=== PATIENT | female | born 1960 | race Caucasian/White ===

== ENCOUNTER → 2016-10-31 | Outpatient (CLI) | payer BC ==
--- NOTE | 2016-10-31 15:41 | MAMMOGRAPHY REPORT ---
BILATERAL DIGITAL SCREENING MAMMOGRAM TOMOSYNTHESIS WITH CAD: 10/31/2016 CLINICAL HISTORY: Routine screening. Patient has no complaints. TECHNIQUE: Breast tomosynthesis in addition to standard 2D mammography was performed. Current study was also evaluated with a Computer Aided Detection (CAD) system. COMPARISON: Comparison is made to exams dated: 10/26/2015 mammogram, 10/20/2014 mammogram, 10/14/2013 mammogram, 10/18/2012 mammogram, 10/08/2012 mammogram, and 04/12/2012 mammogram - [facility]. BREAST COMPOSITION: The tissue of both breasts is almost entirely fatty. FINDINGS: No suspicious masses, calcifications, or areas of architectural distortion are noted in e ither breast. There has been no significant interval change compared to prior exams. Left lateral b reast asymmetry on the CC view is similar to prior exams including the 2013 exam. IMPRESSION: ACR BI-RADS CATEGORY 2: BENIGN There is no mammographic evidence of malignancy. A 1 year screening mammogram is recommended. The p atient will receive written notification of the results. Approximately 10% of breast cancers are not detected with mammography. A negative mammographic repor t should not delay biopsy if a clinically suggestive mass is present. Odilia Dobbs M.D. ah/:10/31/2016 12:38:39 Assistant Vice President: Kristan DRAKE(Sahara)(Mario)([place]), [facility] letter sent: Normal 1/2 BI-RADS Code: ACR BI-RADS Category 2: Benign
== END | disposition home or self-care (01) ==
LOC: C.MAMM 09:56
PROVIDERS: ATTEND Internal Medicine
DX: Z12.31 Encounter for screening mammogram for malignant neoplasm of breast (principal)

== ENCOUNTER → 2017-11-06 | Outpatient (CLI) | payer OTHER ==
--- NOTE | 2017-11-09 07:43 | MAMMOGRAPHY REPORT ---
BILATERAL DIGITAL SCREENING MAMMOGRAM TOMOSYNTHESIS WITH CAD: 11/06/2017 CLINICAL HISTORY: Routine screening. Patient has no complaints. TECHNIQUE: Breast tomosynthesis in addition to standard 2D mammography was performed. Current study was also evaluated with a Computer Aided Detection (CAD) system. COMPARISON: Comparison is made to exams dated: 10/31/2016 mammogram, 10/26/2015 mammogram, 10/20/2014 ma mmogram, 10/14/2013 mammogram, 10/18/2012 ultrasound, and 10/08/2012 mammogram - [facility]. BREAST COMPOSITION: The tissue of both breasts is almost entirely fatty. FINDINGS: No suspicious masses, calcifications, or areas of architectural distortion are noted in ei ther breast. There has been no significant interval change compared to prior exams. IMPRESSION: ACR BI-RADS CATEGORY 1: NEGATIVE There is no mammographic evidence of malignancy. A 1 year screening mammogram is recommended. The pa tient will receive written notification of the results. Approximately 10% of breast cancers are not detected with mammography. A negative mammographic report should not delay biopsy if a clinically suggestive mass is present. Odilia Dobbs M.D. /:11/06/2017 11:19:14 Human Resources Department Supervisor: Sheila DRAKE(Sahara)(Mario), [facility] letter sent: Normal 1/2 BI-RADS Code: ACR BI-RADS Category 1: Negative
== END | disposition home or self-care (01) ==
LOC: C.MAMM 08:58
PROVIDERS: ATTEND Internal Medicine
DX: Z12.31 Encounter for screening mammogram for malignant neoplasm of breast (principal)

== ENCOUNTER → 2018-01-15 | Outpatient (CLI) | payer OTHER ==
[~2018-01-15] MED LIST: ATV/1 PO; METH4PAK PO; SERT-234 PO
[2018-01-15 13:31] LABS: BASO % 0.3 %; BASO ABS # 0.03 K/uL (0-0.2); EOS % 1.8 %; EOS ABS # 0.21 K/uL (0-0.5); HEMOGLOBIN 15.5 g/dL (12.0-16.0); IG# 0.18 K/uL (0.00-0.02); LYMPH % 21.5 %; LYMPH ABS # 2.57 K/uL (1.2-3.4); MEAN CELL VOLUME 89.9 fL (80-100); MEAN CORPUSCULAR HEMOGLOBIN 29.6 pg (25-34); MEAN PLATELET VOLUME 9.8 fL (7.4-10.4); MONO % 3.8 %; MONO ABS # 0.45 K/uL (0.11-0.59); NEUT % 71.1 %; PLATELET COUNT 350 K/uL (130-400); RED CELL DISTRIBUTION WIDTH CV 14.3 % (11.5-14.5); RED CELL DISTRIBUTION WIDTH SD 46.9 fL (36.4-46.3); WHITE BLOOD COUNT 11.94 K/uL (4.8-10.8)
[2018-01-15 13:36] LABS: HEMOGLOBIN A1C 6.7 % (4.5-5.6)
[2018-01-15 13:53] LABS: ALBUMIN 3.7 gm/dl (3.4-5.0); ALKALINE PHOSPHATASE 82 U/L (45-117); ALT/SGPT 30 U/L (12-78); AST/SGOT 13 U/L (15-37); BLOOD UREA NITROGEN 12 mg/dl (7-18); CALCIUM 9.2 mg/dl (8.5-10.1); CARBON DIOXIDE 31 mmol/L (21-32); CHOLESTEROL 294 mg/dl (0-200); CREATININE 0.81 mg/dl (0.60-1.20); GLUCOSE 118 mg/dl (70-99); LDL CHOLESTEROL CALCULATED 187 mg/dl; POTASSIUM 4.3 mmol/L (3.5-5.1); SODIUM 140 mmol/L (136-145); TOTAL PROTEIN 7.6 gm/dl (6.4-8.2)
== END | disposition home or self-care (01) ==
LOC: C.LABBC 10:24
PROVIDERS: ATTEND Internal Medicine
DX: Z00.00 Encounter for general adult medical examination without abnormal findings (principal); Z11.59 Encounter for screening for other viral diseases; F32.9 Major depressive disorder, single episode, unspecified; F41.1 Generalized anxiety disorder; E78.5 Hyperlipidemia, unspecified; R73.03 Prediabetes; F17.200 Nicotine dependence, unspecified, uncomplicated

== ENCOUNTER 2018-01-22 13:58 | Emergency (ER) | payer OTHER ==
[~2018-01-22] VITALS: Ht 167.6 cm; Wt 101.6 kg
[2018-01-22 14:02] VITALS: TEMP 36.5; Ht 167.6 cm; Wt 101.6 kg
[2018-01-22] MEDS ORDERED: ALBUT/IPRATROP 3MG/0.5MG NEB 3 ML VIAL ONE (14:28)
[2018-01-22] MEDS ORDERED: ALBUT/IPRATROP 3MG/0.5MG NEB 3 ML VIAL INH STA ×2 (14:30→14:44)
[2018-01-22 14:32] VITALS: O2SAT 95
[2018-01-22 14:39] LABS: BASO % 0.4 %; BASO ABS # 0.04 K/uL (0-0.2); EOS % 2.5 %; EOS ABS # 0.28 K/uL (0-0.5); HEMATOCRIT 43.6 % (37-47); HEMOGLOBIN 14.9 g/dL (12.0-16.0); IG# 0.11 K/uL (0.00-0.02); LYMPH ABS # 3.29 K/uL (1.2-3.4); MEAN CELL VOLUME 87.4 fL (80-100); MEAN CORPUSCULAR HEMOGLOBIN 29.9 pg (25-34); MEAN CORPUSCULAR HGB CONC 34.2 g/dl (32-36); MEAN PLATELET VOLUME 9.5 fL (7.4-10.4); MONO % 6.1 %; MONO ABS # 0.69 K/uL (0.11-0.59); NEUT ABS # 6.95 K/uL (1.4-6.5); PLATELET COUNT 373 K/uL (130-400); RED CELL DISTRIBUTION WIDTH CV 13.9 % (11.5-14.5); RED CELL DISTRIBUTION WIDTH SD 44.2 fL (36.4-46.3); WHITE BLOOD COUNT 11.36 K/uL (4.8-10.8)
[2018-01-22] MEDS ORDERED: SODIUM CHLORIDE 0.9% 1000ML 1,000 ML IV STA (14:44)
[2018-01-22 14:50] LABS: INR 0.9 (0.9-1.1); PTT PATIENT 26.9 SECONDS (21.0-31.0)
[2018-01-22] MEDS ORDERED: DEXAMETHASONE SOD INJ 4 MG/ML VIAL IV STA (14:50)
--- NOTE | 2018-01-22 14:55 | DIAGNOSTIC IMAGING REPORT ---
CHEST ONE VIEW PORTABLE CLINICAL HISTORY: SOB, wheezing dyspnea COMPARISON STUDY: 05/05/2014 FINDINGS: The bones soft tissues and hemidiaphragms are normal. The cardiomediastinal silhouette is normal. The lungs are clear. The pulmonary vasculature is normal. IMPRESSION: Negative chest. The above report was generated using voice recognition software. It may contain grammatical, syntax or spelling errors. Electronically signed by: Sean Gann M.D. 01/22/2018 2:53 PM Dictated Date/Time: 01/22/2018 2:53 PM
[2018-01-22] MEDS ORDERED: OPTIRAY 320 IV PRN (15:00)
--- NOTE | 2018-01-22 15:00 | EMERGENCY ROOM VISIT NOTE ---
ED Visit Note First contact with patient: 14:34 CHIEF COMPLAINT: Sore throat, shortness of breath, "feels like something is stuck in my airway" HISTORY OF PRESENTING ILLNESS: This is a 57-year-old female with past medical history of COPD and depression, who presents to the emergency department with complaint of shortness of breath and difficulty breathing. She states she started with a sore throat 2 days ago, and began to start feeling like she was having difficulty breathing. Today she noticed significant worsening symptoms and also noticed that the front of her neck appears swollen to her. She denies any fevers or chills, denies other URI symptoms of cough, ear pain, or sinus congestion. She states she had a similar feeling of sore throat about 1 month ago, she saw her doctor and was tested for strep which was negative, and states that she was treated with a course of penicillin, and her symptoms resolved. She denies any headaches, vision changes, neck pain or stiffness, difficulty swallowing, tongue or lip swelling, chest pain, abdominal pain, or unusual rash. REVIEW OF SYSTEMS: A complete 10 point review of systems was reviewed with the patient with pertinent positives and negatives as per history of present illness. All else were negative. PAST MEDICAL HISTORY: COPD/asthma, depression/anxiety SOCIAL HISTORY: Lives at home. She is a current everyday smoker, 1 pack per day. ALLERGIES: Reviewed in chart, see below. PHYSICAL EXAM: CONSTITUTIONAL: Pleasant and cooperative. No acute distress. Mildly dehydrated , but otherwise well appearing and well nourished. HEENT: Normocephalic, atraumatic. Pupils equal, round and reactive to light, EOMI. TMs normal. Pharynx is mildly erythematous, but no edema, exudate, or tonsillar enlargement appreciated. No woody edema or tenderness of the mouth floor. No uvular deviation. No trismus. Voice is slightly hoarse. Airway patent. Tacky mucous membranes. NECK: Supple, full active range of motion without discomfort. No cervical adenopathy. RESPIRATORY: Diffuse expiratory wheezes heard with auscultation bilaterally. No crackles or rhonchi. Mild stridor. Equal expansion bilaterally. CARDIOVASCULAR: Regular rate and rhythm with no murmurs, rubs or gallops. Normal peripheral perfusion. No edema. GASTROINTESTINAL: Soft, nontender, nondistended. No palpable masses or HSM. Bowel sounds present in all quadrants. MUSCULOSKELETAL: Full range of motion of all joints without discomfort. INTEGUMENTARY: No rash or other significant dermatologic conditions noted. NEUROLOGIC: Alert and oriented X 4 with normal affect. Cranial nerves II-XII grossly intact, no facial droop. No pronator drift. No focal neurologic deficits noted. Normal strength and sensation in all 4 extremities. Normal speech. Normal gait observed. ED COURSE AND MEDICAL DECISION MAKING: CC: Patient presenting with complaint of sore throat, shortness of breath DIFFERENTIAL DIAGNOSIS: Includes, but not limited to pharyngitis, strep, mononucleosis, airway foreign body, peritonsillar abscess, retropharyngeal abscess, airway mass, Lavon's angina, among others. INTERPRETATION OF LABS: Mild leukocytosis, no anemia, normal platelets, no significant electrolyte abnormalities, normal renal function, normal liver enzymes. Coagulation factors within normal limits. Monospot negative. Rapid strep negative, culture pending. IMAGING: CHEST ONE VIEW PORTABLE CLINICAL HISTORY: SOB, wheezing dyspnea COMPARISON STUDY: 05/05/2014 FINDINGS: The bones soft tissues and hemidiaphragms are normal. The cardiomediastinal silhouette is normal. The lungs are clear. The pulmonary vasculature is normal. IMPRESSION: Negative chest. ----- CT OF THE NECK WITH CONTRAST CLINICAL HISTORY: Neck injury on swelling. Sore throat. COMPARISON STUDY: No previous studies for comparison. TECHNIQUE: Axial images of the neck were obtained following intravenous injection of 92 cc Optiray 320 IV. FINDINGS: Visualized portions of the intracranial contents are unremarkable. The parotid and submandibular glands are normal. Thyroid gland is normal. Epiglottis is normal. There is mild enlargement of the tonsils and the adenoids. There is laryngeal edema within the glottic/supraglottic region. There is a 1 cm hypodensity which extends inferiorly from the cords. In addition, there is a 1.9 x 0.5 cm hyperdensity posterior superior to the cricoid cartilage either within or adjacent to the proximal esophagus. Lung apices are clear. Major vasculature of the neck is patent. There is moderate narrowing of the proximal right internal carotid artery. IMPRESSION: 1. Moderate to marked airway narrowing at the glottic/supraglottic region with inflammation. Close clinical monitoring is recommended. Associated 1 cm hypoechoic density which extends inferiorly from the cords. This may reflect edematous tissue or a hypodense mass. In addition, 1.9 x 0.5 cm hyperdensity posterior superior to the cricoid cartilage which is either within or adjacent to the proximal esophagus. While this may be physiologic, the findings raise the possibility of a foreign body. ENT consultation is recommended. Findings discussed with Dr. Beauchamp time of dictation. 2. Mild enlargement of the tonsils and adenoids. 3. Moderate narrowing of the proximal right internal carotid artery. MEDICATION RECONCILIATION: I attest that I have personally reviewed the patient 's current medication list. INITIAL VITAL SIGNS REVIEW: I reviewed the patient's initial vital signs and interpret them as follows: T: Afebrile; BP: Hypertensive; HR: Mildly tachycardic; RR: Mildly tachypneic; Pulse Ox: 99% on room air. Blood pressure screening: The patient was found to have an elevated blood pressure, which was felt to be situational. SUMMARY: Patient was evaluated at bedside, history and physical exam performed. Patient is alert and oriented, in no acute distress, but does appear anxious and uncomfortable, sitting upright in the stretcher. Patient with diffuse wheezing and mild stridor on auscultation. DuoNeb started by nursing, orders placed by nursing protocol due to long waits in the ED. Additional orders were placed at bedside for CT soft tissue neck with IV contrast to evaluate for airway obstruction/Lavon's angina. Patient discussed with Dr. Beauchamp, who agrees with my assessment and plan. Labs and imaging reviewed as above, CT imaging concerning for significant airway obstruction with a hypoechoic density extending inferiorly from the cords. I spoke on the phone with Dr. Marquis, ENT, regarding the patient's clinical exam and CT findings, he did agree to come in to the ED to evaluate the patient. I did follow up with Dr. Marquis after he performed bedside scope of the patient' s airway, he confirms that there is a large polyp on the left side of the vocal cords, with maximum airway obstruction of about 50%. Please see his note for further details. Dr. Marquis did feel the patient could be safely discharged home, he recommended placing her on a Medrol Dosepak, and he will see her in his office on Thursday for elective surgical management of the polyp. Patient reassessed multiple times throughout ED stay, she has remained stable, airway patent, and she states she is feeling a lot better after the IV steroids and IV fluids. Patient was updated on all results and plan for discharge, with close follow-up with Dr. Marquis and ENT. Rx for Medrol Dosepak was provided to the patient and she was educated regarding this medication. Patient was also given strict return precautions should her symptoms worsen, she verbalized understanding. Patient was discharged home in stable condition and ambulatory. (Viji Valles, IVA) First contact with patient: 14:34 (Benji Beauchamp M.D.) Current/Historical Medications Scheduled Lorazepam (Ativan), 2 MG PO HS Methylprednisolone (Medrol Dosepak), 0 PO DAILY Sertraline (Zoloft), 100 MG PO QAM Allergies Coded Allergies: Bupropion (Verified Allergy, Mild, ., 03/17/13) DIDNT WORK Citalopram (Verified Allergy, Mild, GI SYMPTOMS, 03/17/13) Fluoxetine (Verified Allergy, Mild, ., 03/17/13) DIDN'T WORK Latex (Verified Allergy, Mild, ., 03/17/13) "SKIN BURNED OFF" WHERE BANDAGE WAS. Lovastatin (Verified Allergy, Mild, ., 03/17/13) LEGS HURT Pravastatin (Verified Allergy, Mild, GI SYMPTOMS, 03/17/13) Simvastatin (Verified Allergy, Mild, GI SYMPTOMS, 03/17/13) Vital Signs Date Time Temp Pulse Resp B/P (MAP) Pulse Ox O2 Delivery O2 Flow Rate FiO2 01/22/18 18:02 102 18 125/84 96 01/22/18 16:48 93 20 92 Room Air 01/22/18 16:11 101 16 142/68 92 Room Air 01/22/18 14:32 95 Room Air 01/22/18 14:31 95 Room Air 01/22/18 14:26 96 Room Air 01/22/18 14:19 84 01/22/18 14:02 36.5 102 22 185/93 99 Room Air (Benji Beauchamp M.D.) Laboratory Results 01/22/18 14:20 Red Blood Count 4.99, Mean Corpuscular Volume 87.4, Mean Corpuscular Hemoglobin 29.9, Mean Corpuscular Hemoglobin Concent 34.2, Mean Platelet Volume 9.5, Neutrophils (%) (Auto) 61.0, Lymphocytes (%) (Auto) 29.0, Monocytes (%) (Auto) 6.1, Eosinophils (%) (Auto) 2.5, Basophils (%) (Auto) 0.4, Neutrophils # (Auto) 6.95, Lymphocytes # (Auto) 3.29, Monocytes # (Auto) 0.69, Eosinophils # (Auto) 0.28, Basophils # (Auto) 0.04 01/22/18 14:20 Test 01/22/18 14:20 White Blood Count 11.36 K/uL (4.8-10.8) Red Blood Count 4.99 M/uL (4.2-5.4) Hemoglobin 14.9 g/dL (12.0-16.0) Hematocrit 43.6 % (37-47) Mean Corpuscular Volume 87.4 fL (80-100) Mean Corpuscular Hemoglobin 29.9 pg (25-34) Mean Corpuscular Hemoglobin Concent 34.2 g/dl (32-36) Platelet Count 373 K/uL (130-400) Mean Platelet Volume 9.5 fL (7.4-10.4) Neutrophils (%) (Auto) 61.0 % Lymphocytes (%) (Auto) 29.0 % Monocytes (%) (Auto) 6.1 % Eosinophils (%) (Auto) 2.5 % Basophils (%) (Auto) 0.4 % Neutrophils # (Auto) 6.95 K/uL (1.4-6.5) Lymphocytes # (Auto) 3.29 K/uL (1.2-3.4) Monocytes # (Auto) 0.69 K/uL (0.11-0.59) Eosinophils # (Auto) 0.28 K/uL (0-0.5) Basophils # (Auto) 0.04 K/uL (0-0.2) RDW Standard Deviation 44.2 fL (36.4-46.3) RDW Coefficient of Variation 13.9 % (11.5-14.5) Immature Granulocyte % (Auto) 1.0 % Immature Granulocyte # (Auto) 0.11 K/uL (0.00-0.02) Prothrombin Time 9.2 SECONDS (9.0-12.0) Prothromb Time International Ratio 0.9 (0.9-1.1) Activated Partial Thromboplast Time 26.9 SECONDS (21.0-31.0) Partial Thromboplastin Ratio 1.0 Anion Gap 6.0 mmol/L (3-11) Est Creatinine Clear Calc Drug Dose 95.6 ml/min Estimated GFR () 96.2 Estimated GFR (Non- 83.0 BUN/Creatinine Ratio 17.2 (10-20) Calcium Level 9.7 mg/dl (8.5-10.1) Total Bilirubin 0.2 mg/dl (0.2-1) Aspartate Amino Transf (AST/SGOT) 23 U/L (15-37) Alanine Aminotransferase (ALT/SGPT) 32 U/L (12-78) Alkaline Phosphatase 89 U/L (45-117) Total Protein 8.4 gm/dl (6.4-8.2) Albumin 3.8 gm/dl (3.4-5.0) Globulin 4.6 gm/dl (2.5-4.0) Albumin/Globulin Ratio 0.8 (0.9-2) Monoscreen NEG (NEG) (Benji Beauchamp M.D.) Medications Administered Medications (Trade) Dose Ordered Sig/Zora Route Start Time Stop Time Status Last Admin Dose Admin Albuterol/ Ipratropium (Duoneb) 3 ml NOW STAT INH 01/22/18 14:30 01/22/18 14:31 DC 01/22/18 14:30 3 ML Sodium Chloride 1,000 ml @ 999 mls/hr Q1H1M STAT IV 01/22/18 14:44 01/22/18 15:44 DC 01/22/18 15:00 999 MLS/HR Albuterol/ Ipratropium (Duoneb) 6 ml NOW STAT INH 01/22/18 14:44 01/22/18 14:48 DC 01/22/18 14:44 6 ML Dexamethasone Sodium Phosphate (Decadron Inj) 10 mg NOW STAT IV 01/22/18 14:50 01/22/18 14:51 DC 01/22/18 14:50 10 MG Racepinephrine (Raccemic Epinephrine 2.25% 0.5ML Neb) 0.5 ml NOW STAT INH 01/22/18 16:26 01/22/18 16:27 DC 01/22/18 16:47 0.5 ML (Benji Beauchamp M.D.) Departure Information Impression Primary Impression: Polyp of vocal cord Dispostion Home / Self-Care Condition GOOD Prescriptions Methylprednisolone (MEDROL DOSEPAK) 4 Mg Manas 0 PO DAILY, #1 PKT Prov: Viji Valles, ACCOUNT UNDERWRITER 01/22/18 Referrals Holland Ortiz M.D. (PCP) Patient Instructions My [facility] Additional Instructions You have been evaluated and treated in the emergency department today for your difficulty breathing. You were evaluated at bedside by the ENT surgeon, and were found to have a polyp in your vocal cords. You have been prescribed a Medrol Dosepak (steroid) to help manage the inflammation of the polyp, please take this as prescribed. You have been set up for a follow-up appointment with Dr. Marquis with ENT on Thursday, January 26, 2018 for further management of your polyp. Please return to the emergency department for any worsening symptoms, including increased difficulty breathing or inability to catch her breath, high-pitched or noisy breathing, severe pain in your throat or neck, severe dizziness or passing out, development of fevers or chills, or any other concerns.
[2018-01-22 15:02] LABS: ALBUMIN 3.8 gm/dl (3.4-5.0); CALCIUM 9.7 mg/dl (8.5-10.1); CREATININE 0.8 mg/dl (0.60-1.20); POTASSIUM 3.5 mmol/L (3.5-5.1); TOTAL PROTEIN 8.4 gm/dl (6.4-8.2)
[2018-01-22] MEDS ORDERED: RACEPINEPHRINE 2.25% NEBU SOLN 0.5 ML VIAL INH STA (16:26)
--- NOTE | 2018-01-22 16:33 | DIAGNOSTIC IMAGING REPORT ---
CT OF THE NECK WITH CONTRAST CLINICAL HISTORY: Neck injury on swelling. Sore throat. COMPARISON STUDY: No previous studies for comparison. TECHNIQUE: Axial images of the neck were obtained following intravenous injection of 92 cc Optiray 320 IV. FINDINGS: Visualized portions of the intracranial contents are unremarkable. The parotid and submandibular glands are normal. Thyroid gland is normal. Epiglottis is normal. There is mild enlargement of the tonsils and the adenoids. There is laryngeal edema within the glottic/supraglottic region. There is a 1 cm hypodensity which extends inferiorly from the cords. In addition, there is a 1.9 x 0.5 cm hyperdensity posterior superior to the cricoid cartilage either within or adjacent to the proximal esophagus. Lung apices are clear. Major vasculature of the neck is patent. There is moderate narrowing of the proximal right internal carotid artery. IMPRESSION: 1. Moderate to marked airway narrowing at the glottic/supraglottic region with inflammation. Close clinical monitoring is recommended. Associated 1 cm hypoechoic density which extends inferiorly from the cords. This may reflect edematous tissue or a hypodense mass. In addition, 1.9 x 0.5 cm hyperdensity posterior superior to the cricoid cartilage which is either within or adjacent to the proximal esophagus. While this may be physiologic, the findings raise the possibility of a foreign body. ENT consultation is recommended. Findings discussed with Dr. Beauchamp time of dictation. 2. Mild enlargement of the tonsils and adenoids. 3. Moderate narrowing of the proximal right internal carotid artery. Electronically signed by: Zachariah Desai M.D. 01/22/2018 4:32 PM Dictated Date/Time: 01/22/2018 4:08 PM
[2018-01-22 16:48] VITALS: PULSE 93; O2SAT 92
[2018-01-22] MEDS ORDERED: METH4PAK PO (17:34)
[2018-01-22] MEDS ORDERED: SERT-234 PO (17:44)
[2018-01-22] MEDS ORDERED: ATV/1 PO (17:44)
[2018-01-22 18:02] VITALS: BP 125/84; PULSE 102; O2SAT 96
--- NOTE | 2018-01-22 20:23 | ENT CONSULTATION ---
DATE OF CONSULTATION: 01/22/2018 PERSON REQUESTING CONSULTATION: LELAND Valerio INDICATION: Rule out laryngeal mass. HISTORY OF PRESENT ILLNESS: This is a 57-year-old woman who I interviewed in module B12 along with her sister Mary. Mary has noticed that her sister's voice has changed for about the last 3 years. The patient is a heavy smoker. The patient earlier today decided to come to the Emergency Department, as she was feeling her throat close up on her. Since arriving, she was given 10 mg of Decadron. After the Decadron, she reported breathing much more easily. CT scan showed a possible laryngeal mass. As far as review of systems, past medical history, they are all available in the ED note. The patient in general was not tachypneic. There was no stridor. Her voice did sound a bit deep. I performed flexible fiberoptic laryngoscopy through the left nostril. I was easily able to see a polyp that emanated from the junction of the left false cord and the left true cord that swept in and out of the glottis. It obstructed about 50% of the glottis. There were no other abnormalities of the subglottis, the piriform sinuses, the vallecula or anywhere else in the hypopharynx. The only abnormality was the polyp. 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 I offered the patient 3 options. 1. The first option was to do nothing, which I thought was a very bad idea and I threw it out of hand. 2. The second option was to go to the operating room tonight and remove this using direct laryngoscopy without CO2 laser. I explained that I did not feel this was the best course in that I can do much more refined work with the CO2 laser, and this would have a better impact on potential regrowth of the polyp and on her vocal quality. 3. The third option was to send her home on oral steroids and to see her back on 01/26/2018, in my office. I shared that I favored this option , as she is confident that she would never let things get out of hand to the point where she could not breathe before returning to the ED. Therefore, there is really not much downside for her to just return to see me in my office on 01/26/2018. At that point, I will make arrangements to schedule elective surgery for her at [facility] with the CO2 laser. Alternatively, this might be done at the [facility] outpatient surgery center. In any event, the patient and I will discuss this on Thursday01/26/2018 at her visit with me. I have already discussed the management options with Stefani Pro and she will make out the prescription for the oral steroids. SEAN
== END 2018-01-22 18:04 | disposition home or self-care (01) ==
LOC: C.EDB 13:59
DX: J38.1 Polyp of vocal cord and larynx (principal); R06.00 Dyspnea, unspecified; R07.0 Pain in throat; J44.9 Chronic obstructive pulmonary disease, unspecified; I10 Essential (primary) hypertension; I65.21 Occlusion and stenosis of right carotid artery; F17.210 Nicotine dependence, cigarettes, uncomplicated; Z79.899 Other long term (current) drug therapy; Z88.8 Allergy status to other drugs, medicaments and biological substances

== ENCOUNTER → 2018-02-05 | Day surgery (SDC) | payer OTHER ==
[2018-02-01 11:15] VITALS: Ht 167.6 cm; Wt 100.0 kg
[~2018-02-05] VITALS: Ht 167.6 cm; Wt 100.0 kg
[~2018-02-05] MED LIST changes: +IBUP-103 PO; -METH4PAK PO
== END | disposition home or self-care (01) ==
LOC: EDSTATUS 10:15 → C.PAT 11:53
DX: J38.1 Polyp of vocal cord and larynx (principal); Z53.9 Procedure and treatment not carried out, unspecified reason

== ENCOUNTER 2020-09-25 04:55 | Observation (INO) ==
--- NOTE | 2020-09-04 15:58 | PAT Medication Instructions ---
Medication Instructions Date of Service September 04, 2020 Home Medications Medication Instructions Recorded lorazepam 1 mg tablet 2 mg PO HS #60 tab 08/13/20 Wheeled Walker #1 ea 08/30/20 Menopause Support 1 tab PO QPM loratadine-pseudoephedrine ER 10 mg-240 mg tablet,extended [id number] 1 tab PO QPM lorazepam 1 mg tablet 2 mg PO HS diclofenac sodium 75 mg PO QAM sertraline [Zoloft] 150 mg PO QAM ASK your surgeon for instructions diclofenac sodium 75 mg PO QAM STOP taking 2 weeks before surgery Menopause Support 1 tab PO QPM Take morning of surgery With a small sip of water, OTHERWISE NOTHING TO EAT OR DRINK AFTER MIDNIGHT: sertraline [Zoloft] 150 mg PO QAM Take evening before surgery loratadine-pseudoephedrine ER 10 mg-240 mg tablet,extended [id number] 1 tab PO QPM lorazepam 1 mg tablet 2 mg PO HS Other Notes If you have any questions please call us at [phone] or [phone] or [phone] or [phone]
--- NOTE | 2020-09-06 09:21 | Anesthesiology Consultation ---
Date of Service September 06, 2020 Assessment & Plan (1) Encounter for pre-operative examination: COVID Status: As of 09/06 assessment, patient denies travel to endemic area, known exposure/sick contacts, or symptoms of COVID19. Patient instructed that they and their household members must follow strict social distancing guidelines, wear a mask in public and avoid travel/events/gatherings for 14 days prior to surgery. Preoperative COVID19 testing to be completed prior to surgery per surgeon's arrangements (08/22 at [facility] [place]). Patient made aware to self-isolate as much as possible between COVID testing and surgery. Chart Review Chart Review: Acceptable Risk for Surgery and Patient seen in Pre Admission Testing Teaching & Discussion Instructed NPO after midnight before surgery, except medications with 15 cc of water. Medication instructions provided according to the PAT guidelines. History Surgery Operation Date: 09/25/20 07:00 Proposed Procedures p Left Total Hip Arthroscopy - Armond Serna MD Height/Weight Height: 5 ft 6 in Weight: 105.5 kg Allergies Allergy/AdvReac Type Severity Reaction Status Date / Time atorvastatin Allergy Intermediate Myalgia Verified 09/04/20 14:23 Cipro Allergy Mild GI UPSET Verified 02/01/18 11:29 adhesive Allergy Unknown Rash Verified 09/04/20 14:23 latex Allergy Unknown ? MILD Verified 09/04/20 14:23 RASH - HAD ITCHY RASH AFTER LATEX USED UNDER ARM AREA rosuvastatin [From Crestor] Allergy Unknown Muscle Pain Verified 09/04/20 14:23 ciprofloxacin AdvReac Unknown GI UPSET Verified 09/04/20 14:23 citalopram AdvReac Unknown GI SYMPTOMS Verified 09/04/20 14:23 fluoxetine AdvReac Unknown Gastrointestinal Verified 09/04/20 14:23 Upset lovastatin AdvReac Unknown MUSCLE ACHE Verified 09/04/20 14:23 pravastatin AdvReac Unknown GI Verified 09/04/20 14:23 SYMPTOMS, LEG PAIN simvastatin AdvReac Unknown GI Verified 09/04/20 14:23 SYMPTOMS, LEG PAIN Medications Home Medications Medication Instructions Recorded Confirmed Last Taken Menopause Support 1 tab PO QPM 03/16/18 09/04/20 03/16/18 16:00 loratadine-pseudoephedrine ER 10 1 tab PO QPM 03/03/19 09/04/20 Unknown mg-240 mg tablet,extended [id number] lorazepam 1 mg tablet 2 mg PO HS #60 tab 08/13/20 09/04/20 Unknown Wheeled Walker #1 ea 08/30/20 08/30/20 Unknown diclofenac sodium 75 mg PO QAM 09/04/20 09/04/20 Unknown sertraline [Zoloft] 150 mg PO QAM 09/04/20 09/04/20 Unknown Past Medical History Medical History (Updated 09/06/20 @ 14:53 by Harpreet Burris) Anxiety and depression Asthma Has albuterol inhaler but never uses. Fatty liver Hyperlipidemia no meds Obesity Osteoarthritis Spinal stenosis Tobacco abuse Type 2 diabetes mellitus without complication Was on Metformin in the past, discontinued. A1C 7.4% on July labs with PCP--discussed with patient; she will return to PCP for follow-up in September. Exercise / Class Metabolic Activity III < 4 Walking/Shop/Light housework (+SOB very quickly with 1 FOS, some SOB with exertion on one level, denies any chest pain) Past Family History Family History (Updated 09/04/20 @ 14:30 by Jude Juan, RN) Mother Family hx colonic polyps Breast cancer Sinusitis Environmental allergies Uterine cancer Aunt Breast cancer Father Multiple myeloma Brother Arteriosclerotic cardiovascular disease (ASCVD) Other Family history of diabetes mellitus No family history of adverse response to anesthesia Past Surgical History Surgical History (Updated 09/04/20 @ 14:26 by Jude Juan, RN) H/O unilateral salpingectomy d/t tubal History of dilation and curettage History of discectomy LUMBAR AREA X2 (1992 & 1994) History of sebaceous cyst removal History of tooth extraction all teeth removed History of tubal ligation History of vocal cord polypectomy Past Anesthesia History No Family Hx of Anesthesia Complications Remote single episode, patient recalls being in PACU and them trying to put oxygen on her and she was trying to fight them off. She was told her oxygen was very low. She feels this was likely related to her smoking a lot the morning of her surgery. No issues with subsequent surgeries when she did not smoke that morning. History of PONV No Hx of PONV and No Hx of Motion Sickness Social History Smoking Status: Current every day smoker tobacco type: cigarettes Smoking cigarettes per day: .5-1PPD/ADVISED NPO Do You Dip or Chew Tobacco: No Hx Alcohol Use: No Hx Substance Use: No substance use type: does not use Review of Systems Pt denies any recent chest pain, shortness of breath above baseline, palpitations, cough, fever, URI, or uncontrolled acid reflux. Physical Exam Vital Signs BP: 147/77 P: 98bpm SPO2: 94% RA T: 98.4 F R: 16 ENMT Mouth: + dentures and + edentulous Thyromental Distance: > or= 3.5 Finger Breadths Mallampati Class: III Neck + thick neck; neck extension not limited Respiratory normal respiratory effort Auscultation: + diminished lung sounds and + wheezes (very soft B/L, scattered) Cardiovascular RRR, no murmur, no edema Testing Laboratory Results PT 8.8 Seconds (9.0-12.0) L 09/06/20 09:36 INR 0.9 (0.9-1.1) 09/06/20 09:36 APTT 23.9 Seconds (21.0-31.0) 09/06/20 09:36 Blood Type A Positive 09/06/20 09:36 Antibody Screen NEGATIVE 09/06/20 09:36 08/15/20 WBC: 9.68 H/H: 15.4/46.9 PLATELETS: 390 SODIUM: 140 POTASSIUM: 4.2 CHLORIDE: 106 CO2: 28 BUN: 18 CREATININE: 0.81 GLUCOSE: 125 Electrocardiogram Date: 09/06/20 Findings: + NSR @ (85bpm) and + no change from (2018) *unconfirmed Chest X-Ray Date: 09/06/20 Findings: + NAD
--- NOTE | 2020-09-06 10:05 | XRay Report ---
XR chest Pre-admission PA/Lat CLINICAL HISTORY: Preoperative chest COMPARISON STUDY: 01/22/2018 FINDINGS: The cardiac and mediastinal contours are normal. There is no evidence of focal pulmonary co nsolidation. There is no evidence of failure. No pleural effusions are visualized.[ IMPRESSION: No active disease in the chest. ACT 112: Negative or not required by law. Electronically signed by: Jake Valdivia M.D. 09/06/2020 10:04 AM
[2020-09-06 10:47] LABS: INR 0.9 (0.9-1.1); Partial Thromboplastin Ratio 0.9; Partial Thromboplastin Time 23.9 Seconds (21.0-31.0); Prothrombin Time 8.8 Seconds (9.0-12.0)
--- NOTE | 2020-09-06 16:44 | Electrocardiogram Report ---
Test Reason : Blood Pressure : / mmHG Vent. Rate : 085 BPM Atrial Rate : 085 BPM P-R Int : 146 ms QRS Dur : 074 ms QT Int : 358 ms P-R-T Axes : 081 072 053 degrees QTc Int : 426 ms Normal sinus rhythm Normal ECG When compared with ECG of 22-JAN-2018 14:56, No significant change was found Confirmed by Bruno Hernandez ([id number]) on 09/06/2020 4:43:51 PM Referred By: Armond Serna Confirmed By:Bruno Hernandez
[2020-09-25] MEDS ORDERED: TRANEXAMIC ACID 1,000 MG **IV Pre-op IV SCH (06:00)
[2020-09-25] MEDS ORDERED: ceFAZolin 2000MG 2,000 MG/15 ML SYR IV SCH (06:00)
[2020-09-25] MEDS ORDERED: GABAPENTIN 600 MG DOSE PO SCH (06:00)
[2020-09-25] MEDS ORDERED: LR 60ML/HR IV SCH (06:00)
[2020-09-25] MEDS ORDERED: LR 500ML BOLUS, THEN 15ML/HR IV SCH (06:00)
[2020-09-25] MEDS ORDERED: FAMOTIDINE 20 MG TAB PO SCH (06:00)
[2020-09-25] MEDS ORDERED: ACETAMINOPHEN 500 MG TAB PO SCH (06:00)
[2020-09-25] MEDS ORDERED: METOCLOPRAMIDE HCL 10 MG TABLET PO SCH (06:00)
[2020-09-25] MEDS ORDERED: Scopolamine 1 MG TDSY TD SCH (06:00)
[2020-09-25] MEDS ORDERED: BUPIVACAINE 0.5 % 5 MG/1 ML PF 10ML VIAL ONE (06:22)
[2020-09-25] MEDS ORDERED: MIDAZOLAM HCL 1 MG/ML 2ML VIAL ONE (06:26)
[2020-09-25] MEDS ORDERED: LIDOCAINE HCL 2% 2 ML VIAL/AMP(20MG/ML) INFIL ONE (06:29)
[2020-09-25] MEDS ORDERED: fentaNYL citrate 100 MCG/2 ML VIAL ONE (06:29)
[2020-09-25] MEDS ORDERED: PROPOFOL IV EMULSION 10 MG/ML 20 ML VIAL IV ONE ×2 (06:29→08:01)
[2020-09-25] MEDS ORDERED: ONDANSETRON INJ 2 MG/ML 2 ML VIAL ONE (06:29)
[2020-09-25] MEDS ORDERED: MoRPHine SULFATE PF 1 MG/ML 10 ML AMP/VIAL ONE (06:30)
[2020-09-25] MEDS ORDERED: EPINEPHrine INJ 1 MG/ML AMP ONE (06:36)
[2020-09-25] MEDS ORDERED: SODIUM CHLORIDE 0.9% PF 50 ML VIAL ONE (06:37)
[2020-09-25] MEDS ORDERED: BACITRACIN INJ 50,000 UNIT VIAL ONE (06:37)
[2020-09-25] MEDS ORDERED: BUPIVACAINE 0.25% 30 ML VIAL ONE (06:37)
[2020-09-25] MEDS ORDERED: BUPIVACAINE LIPOSOME 1.3% 266 MG/20 ML VIAL ONE (06:37)
[2020-09-25] MEDS ORDERED: BUPIVACAINE/EPINEPHRINE 0.5% MPF 1:200,000 30 ML VIAL ONE (06:44)
--- NOTE | 2020-09-25 06:53 | History & Physical Bridge Note ---
Date of Service September 25, 2020 History & Physical Bridge Note I have examined the patient, reviewed the History & Physical and in the interval since the performance of the History & Physical I have noted the following changes of clinical significance: no changes noted
[2020-09-25] MEDS ORDERED: ePHEDrine sulfate 50 MG/ML AMP IV PRN (06:59)
[2020-09-25] MEDS ORDERED: NALOXONE HCL 1 MG in SODIUM CHLORIDE 0.9% 1000ML 1,000 ML IV PRN (06:59)
[2020-09-25] MEDS ORDERED: KETOROLAC 30 MG/ML VIAL IV PRN (06:59)
[2020-09-25] MEDS ORDERED: NALOXONE HCL 0.4 MG/1 ML VIAL/CARP IV PRN ×2 (06:59→10:09)
[2020-09-25] MEDS ORDERED: MoRPHine SULFATE PF 1 MG/ML 10 ML AMP/VIAL INT SPINAL ONE (06:59)
[2020-09-25] MEDS ORDERED: diphenhydrAMINE 50 MG/ML VIAL IV PRN (06:59)
[2020-09-25] MEDS ORDERED: ONDANSETRON INJ 2 MG/ML 2 ML VIAL IV PRN (06:59)
[2020-09-25] MEDS ORDERED: LACTATED RINGER'S 500 ML IV PRN (06:59)
[2020-09-25] MEDS ORDERED: NALOXONE HCL 0.08 MG in SYRINGE 1.8 ML IV PRN (06:59)
[2020-09-25] MEDS ORDERED: MEPERIDINE HCL 25 MG/ML CARP/VIAL IV PRN (06:59)
[2020-09-25] MEDS ORDERED: PROMETHAZINE HCL 12.5 MG in SODIUM CHLORIDE 0.9% 50 ML IV PRN (06:59)
[2020-09-25] MEDS ORDERED: DC INTRASPINAL MORPHINE SCH (07:00)
[2020-09-25] MEDS ORDERED: SODIUM CHLORIDE 0.9% 1000ML 1,000 ML IV SCH (07:00)
[2020-09-25] MEDS ORDERED: NO NARCOTICS OR SEDATIVES SCH (07:00)
[2020-09-25] MEDS ORDERED: PHENYLEPHRINE 100MCG/ML 5ML SYR ONE (07:34)
[2020-09-25] MEDS ORDERED: ePHEDrine sulfate 50 MG/ML SYR ONE (07:50)
[2020-09-25] MEDS ORDERED: PHENYLEPHRINE HCL 10 MG/ML VIAL ONE (07:52)
--- NOTE | 2020-09-25 08:42 | Operative Report ---
Post Operative Report Pre & Post Diagnosis Operation Date: 09/25/20 07:00 Pre-Op Diagnosis: Left Hip Degenerative Joint Disease Post-Op Diagnosis: Left Hip Degenerative Joint Disease I identified the patient and participated in the time-out.: Yes Procedure Operation Date: 09/25/20 07:00 Actual Procedures p Left Total Hip Arthroplasty-uncemented(Left) - Armond Serna MD Surgeon Armond Serna MD Clubhouse Manager YUNIER Morris Estimated Blood Loss 200 Findings Consistent with Post-Op Diagnosis Operative findings revealed advanced left hip DJD. She had extensive grade 4 [id number] disease of the femoral head and acetabulum. She had a large anterior acetabular osteophyte. A fairly large medial acetabular osteophyte. She had osteophytes around the femoral head as well. Very stiff hip preoper atively. Fluids 1000 cc. Specimens Left femoral head sent for pathology. Drains None. Anesthesia Type Spinal MAC Complications none Disposition Accompanied Patient To Recovery: Yes Disposition: Recovery Room Indications Patient is a 60-year-old female is had a long history of a left hip and lateral back and leg pain. She has had 2 previous back surgeries in the past. Over the past several years she developed increased pain discomfort left hip area. X- rays show advanced left hip arthritis. She failed all conservative measures and elected proceed with total hip arthroplasty. Description of Procedure Operative implants consist of: 1 Biomet G7 size 52 mm acetabular shell. 2. 6.5 cancellous acetabular screws 1 of 35 mm length 1 to 25 mm length. 3. Leon hole topography technician. 4. Highly cross-linked polyethylene liner with a 52 mm outer diameter, 36 mm inner diameter with a darling placed inferior and posterior 5 DePuy Corail size 10 KLA femoral stem. 6. +5/36 mm ceramic articular ball. Patient was taken to the operating, identified, placed in the operating table supine position protectors were properly padded. IV antibiotics tried by anesthesia team. A spinal anesthetic had been implemented holding area. Whalen catheter was placed in sterile fashion. The patient was then placed in the right lateral decubitus position. An axillary roll was placed. A Stulberg hip positioner was used for positioning. The left hip and leg were then prepped and draped in usual sterile fashion. A posterior lateral approach to the left hip was then performed through a curvilinear incision centered over the greater trochanter. Sharp dissection got through subcutaneous this down to level the IT band gluteal fascia but the IT band gluteal fascia was incised longitudinally in line with skin incision. The underlying greater bursa was excised. The piriformis and external rotators along with the posterior hip joint capsule were then released as a single layer. Great care was taken throughout the procedure protect the sciatic nerve at all times. Hip was internally rotated and dislocated. Femoral neck osteotomy cut was made with Final Cut about 10 mm above the lesser trochanter. Femoral head was removed and sent for pathology. The femur was retracted anteriorly. Attention drawn the acetabulum. The acetabular labrum was excised. The pulmonary fat was excised. Sequential reaming the acetabular was then performed again with size 45 and progressing up to 51. I did reamed some with a 52 reamer and then 52 mm Biomet G7 acetabular shell was then placed in about 40 degrees lateral opening and 20 degrees of ant eversion. It was fixed with two 6.5 cancellous acetabular screws. A large anterior osteophyte was removed. Trial liner was placed. Attention drawn the femur. The proximal femur was entered with a cookie-cutter followed by canal finder. Broached begin the size 8 and progressing up to 10. We got really good fit of 10 so I stop there. She had a very good cancellous envelope. Calcar reamer was used smooth and off the calcar. Then trialed the hip and the +5 articular ball provide full stability in full extension and external rotation and flexion to 9 degrees internal rotation about 50 degrees. I did elect to place a darling inferior and posterior in order to maximize her stability in flexion especially considering her history of back surgery in the past. Attention drawn to placing permanent components. All trial components were removed. Leon hole topography technician was placed. Highly cross-linked polyethylene liner with a darling placed inferior and posterior was impacted in position. A DePuy size 10 KLA femoral stem was impacted in position. +5/36 mm ceramic articular ball was placed. Hip was located once again found to be stable. Attention drawn toward closing. The wounds irrigated scope soft pulsatile lavage solution. I did inject locally with 60 cc of half percent Marcaine with epinephrine. The posterior capsule and external rotators were then repaired through drill holes in the posterior trochanter with #2 Tycron suture. The IT band gluteal fascia then closed in 1 PDS suture running fashion. Subcutaneous tissue was then closed with 2 layers the deep layer #1 Vicryl suture subcutaneous tissue with 2-0 Dexon suture in a buried interrupted fashion. Skin was closed with skin barry. Leg was then cleaned and dried and sterile dressing both Xeroform, 4 x 4's, ABD pad, foam tape was applied. The patient then transferred to the recovery room in stable condition. The patient tolerated the procedure well and there were no complications. Jerel Morris, my physician medical claims assistant, was present for the entire procedure. His assistance was essential and required for appropriate patient positioning, prepping and draping, surgical exposure, performing the technical details of the operation, placement the implants, closure of the wound, and placement of the sterile bandage. I attest to the content of the Intraoperative Record and any orders documented therein. Any exceptions are noted below.
--- NOTE | 2020-09-25 09:11 | XRay Report ---
SINGLE VIEW PELVIS; SINGLE VIEW LEFT HIP CLINICAL HISTORY: Postoperative examination. FINDINGS: An AP portable view of the hips and pelvis with a crosstable lateral portable view of the l eft hip are obtained. A bipolar left hip arthroplasty is in near-anatomic alignment. At least 2 subha ical lag screws transfix the acetabular cup. No acute fracture is identified. There are expected post operative changes overlying the left hip including skin clips, subcutaneous gas, and soft tissue swel ling. Moderate degenerative change is noted in the right hip. A Whalen catheter is in place. IMPRESSION: Expected postoperative findings status post left hip arthroplasty. No acute fracture is s een. ACT 112: Negative or not required by law. Electronically signed by: Haroon Lira M.D. 09/25/2020 9:09 AM
--- NOTE | 2020-09-25 10:00 | Anesthesiology Progress Note ---
Date of Service September 25, 2020 Anesthesia Post Procedure Vital Signs Vital Signs: Temp Pulse Pulse Resp BP Pulse Ox 09/25/20 09:20 36.5 C 78 12 123/86 99 09/25/20 09:10 36.5 C 82 20 120/95 100 09/25/20 09:00 76 15 122/80 97 09/25/20 08:50 82 15 114/85 99 09/25/20 08:40 79 16 133/79 100 09/25/20 08:30 36.3 C L 87 16 113/77 92 09/25/20 05:51 36.7 C 89 20 162/85 H 92 Transfer of Care Handoff Completed per policy Notes Mental Status: alert / awake / arousable Patient Amnestic to Procedure: Yes Nausea / Vomiting: adequately controlled Pain: adequately controlled Airway Patency, RR, SpO2: stable & adequate BP & HR: stable & adequate Hydration State: stable & adequate Anesthetic Complications: no major complications apparent
[2020-09-25] MEDS ORDERED: DEXTROSE 50% 50 ML SYRINGE IV PRN ×2 (10:09→11:15)
[2020-09-25] MEDS ORDERED: GLUCOSE 40% GEL 15 GM TUBE PO PRN ×2 (10:09→11:15)
[2020-09-25] MEDS ORDERED: ALUMINUM/MAGNESIUM SUSP 30 ML UDC PO PRN (10:09)
[2020-09-25] MEDS ORDERED: GLUCOSE 10 TABS/TUBE PO PRN ×2 (10:09→11:15)
[2020-09-25] MEDS ORDERED: GLUCAGON FOR INJ 1 MG VIAL SQ PRN (10:09)
[2020-09-25] MEDS ORDERED: diphenhydrAMINE Capsule 25 MG CAP PO PRN (10:09)
[2020-09-25] MEDS ORDERED: CARBOHYDRATES FOR HYPOGLYCEMIA PO PRN ×2 (10:09→11:15)
[2020-09-25] MEDS ORDERED: MAGNESIUM HYDROXIDE SUSP 30 ML UDC PO PRN (10:09)
[2020-09-25] MEDS ORDERED: bisacodyL 10 MG SUPP PR PRN (10:09)
[2020-09-25] MEDS ORDERED: GLUCAGON FOR INJ 1 MG VIAL IM PRN (11:15)
[2020-09-25] MEDS ORDERED: PHARMACY GLYCEMIC MGMT CONSULT PRN (11:16)
[2020-09-25] MEDS ORDERED: LANTUS PER UNIT CHARGE SQ SCH (11:30)
[2020-09-25] MEDS: SODIUM CHLORIDE 0.9% 1000ML 1,000 ML IV SCH ×2 (11:31→19:54)
[2020-09-25] MEDS: MULTIVITAMIN TAB PO SCH (11:32)
[2020-09-25] MEDS: DOCUSATE SODIUM 100 MG CAP PO SCH ×2 (11:32→22:17)
--- NOTE | 2020-09-25 12:22 | Progress Notes ---
DATE: 09/25/2020 SUBJECTIVE: A 60-year-old female postop from a left hip replacement. She is doing well. Really not having any pain yet. No chest pain or shortness of breath. Not feeling dizzy or lightheaded. OBJECTIVE: VITAL SIGNS: Temperature 36.8. Vital signs are stable. GENERAL: Shows a pleasant, middle-aged female. She is sitting up in bed and looks pretty comfortable. LUNGS: Clear to auscultation. HEART: Has a regular rate and rhythm. ABDOMEN: Soft, nontender, nondistended. EXTREMITIES: Grossly neurovascularly intact except as follows: Examination of the left lower extremity reveals the leg to be well aligned. Leg lengths are equal. Hip is located. Dressing is clean, dry and intact. Thigh is soft and supple. She is neurologically intact. X-RAYS: X-rays of the left hip from recovery room are reviewed. It shows left uncemented total hip arthroplasty. Components looked to be in good position. No signs of problems. ASSESSMENT: A 60-year-old female postoperative from a left hip replacement. She is doing well. Pain is controlled. Hip is located. She is neurologically intact. PLAN: 1. DVT prophylaxis including thigh-high TEDs, SCDs, and aspirin twice a day. 2. PT/OT. She can weightbear as tolerated. Left total hip protocol. 3. Pain control, doing pretty well with current pain regimen. We will obviously have to adjust medicines as the spinal wears off. 4. IV antibiotics x24 hours. 5. Disposition: Plan to discharge to home with some home health once adequately recovered and medically stable.
[2020-09-25] MEDS: INSULIN ASPART 100 UNITS/ML 3 ML PEN SC SCH ×3 (13:08→22:18)
[2020-09-25] MEDS ORDERED: TRANEXAMIC ACID / 0.7% NACL 1,000 MG/100 ML BAG IV SCH (14:31)
[2020-09-25] MEDS: ASPIRIN 81 MG ECTAB PO SCH ×2 (14:37→22:18)
[2020-09-25] MEDS: ACETAMINOPHEN 500 MG TAB PO SCH ×2 (14:38→22:19)
[2020-09-25] MEDS: NICOTINE 14 MG/24 HR PATCH TD SCH (14:39)
[2020-09-25] MEDS: ceFAZolin 2000MG 2,000 MG/15 ML SYR IV SCH ×2 (14:41→22:18)
--- NOTE | 2020-09-25 15:14 | Pharmacy Report ---
Pharmacy Glycemic Short Note 2 - Date of Service September 25, 2020 - Glycemic Short BSG Results (Last 24 hours): 09/25/20 09/25/20 09/25/20 05:19 08:34 10:15 POC Glucose 144 H 152 H 112 H 09/25/20 12:27 POC Glucose 140 H OUTPATIENT ANTIDIABETIC REGIMEN: * metformin- not in med rec, but noted from PCP visit note * A1c: 7.4% 08-15-20 ASSESSMENT: * Post op BSG 112. No steroids noted as given in the OR. Will give a one time dose of lantus at lunchtime and continue with only a novolog scale from there. * Patient tolerating a diet. PLAN FOR INPATIENT GLYCEMIC CONTROL: * Hold outpatient oral diabetes medications * Basal insulin * Lantus 10 units SQ X 1 * Bolus insulin * NovoLog per scale ACHS or Q6hrs while NPO * Goal Range: Low 110 mg/dL - High 140 mg/dL * Correction Factor: 20 mg/dL/unit * Nutritional / Prandial insulin per carb ratio of 1 unit per 7 grams CHO consumed
[2020-09-25] MEDS: Scopolamine CHECK PATCH PLACEMENT SCH ×2 (18:07→23:57)
[2020-09-25] MEDS: ASCORBIC ACID 500 MG TAB PO SCH (18:25)
[2020-09-25] MEDS ORDERED: [UNRECOGNIZED DRUG - OTHER] PO SCH (21:00)
[2020-09-25] MEDS: LORATADINE/PSEUDOEPHEDRINE 1 TABCR PO SCH (22:18)
[2020-09-25] MEDS: SENNA 8.6 MG TAB PO SCH (22:18)
[2020-09-26] MEDS ORDERED: HYDROmorphone INJ 0.5 MG/0.5 ML SYR IV PRN (01:00)
[2020-09-26] MEDS: traMADol HCL 50 MG TABLET PO PRN ×2 (01:41→09:20)
[2020-09-26] MEDS: SODIUM CHLORIDE 0.9% 1000ML 1,000 ML IV SCH (03:57)
[2020-09-26] MEDS: ACETAMINOPHEN 500 MG TAB PO SCH ×3 (05:30→20:35)
[2020-09-26] MEDS: KETOROLAC 30 MG/ML VIAL IV SCH ×4 (05:31→23:30)
[2020-09-26 06:40] LABS: Basophils # (auto) 0.01 K/uL (0-0.2); Basophils % (auto) 0.1 %; Eosinophils # (auto) 0.22 K/uL (0-0.5); Eosinophils % (auto) 1.8 %; Hemoglobin 12.6 g/dL (12.0-16.0); Immature Granulocytes # (auto) 0.04 K/uL (0.00-0.02); Immature Granulocytes % (auto) 0.3 %; Lymphocytes # (auto) 1.27 K/uL (1.2-3.4); Lymphocytes % (auto) 10.4 %; Mean Corpuscular Hemoglobin 28.6 pg (25-34); Mean Corpuscular Hgb Conc 32.3 g/dL (32-36); Mean Corpuscular Volume 88.4 fL (80-100); Mean Platelet Volume 9.4 fL (7.4-10.4); Monocytes # (auto) 0.83 K/uL (0.11-0.59); Monocytes % (auto) 6.8 %; Neutrophils # (auto) 9.79 K/uL (1.4-6.5); Neutrophils % (auto) 80.6 %; Platelet Count 235 K/uL (130-400); RDW Standard Deviation 45.7 fL (36.4-46.3); Red Blood Count 4.41 M/uL (4.2-5.4); White Blood Count 12.16 K/uL (4.8-10.8)
[2020-09-26 07:14] LABS: BUN Creatinine Ratio 17.8 (10-20); Calcium 8.7 mg/dl (8.5-10.1); Creatinine Clr Calc Pharmacy 122.2 ml/min; Est GFR (African American) 115.2; Est GFR (Non-African American) 99.4; Potassium 3.9 mmol/L (3.5-5.1)
[2020-09-26] MEDS: Scopolamine CHECK PATCH PLACEMENT SCH ×3 (07:55→23:56)
[2020-09-26] MEDS: NICOTINE 14 MG/24 HR PATCH TD SCH (08:00)
[2020-09-26] MEDS: DOCUSATE SODIUM 100 MG CAP PO SCH ×2 (09:14→20:34)
[2020-09-26] MEDS: ASCORBIC ACID 500 MG TAB PO SCH ×2 (09:14→18:18)
[2020-09-26] MEDS: MULTIVITAMIN TAB PO SCH (09:14)
[2020-09-26] MEDS: INSULIN ASPART 100 UNITS/ML 3 ML PEN SC SCH ×4 (09:16→21:39)
[2020-09-26] MEDS: INSULIN GLARGINE SOLOSTAR 100 UNITS/ML 3 ML PEN SC SCH (09:20)
--- NOTE | 2020-09-26 09:23 | Progress Notes ---
DATE: 09/26/2020 SUBJECTIVE: A 60-year-old white female postop day 1 from a left hip replacement. A bit more sore this morning. Bit teary eyed and a little frustrated by her limited ability to lift her leg. No chest pain or shortness of breath. OBJECTIVE: VITAL SIGNS: Temperature 36.8. Vital signs stable. GENERAL: Shows a pleasant, middle-aged female. She is lying in bed. A little bit teary eyed this morning. EXTREMITIES: Examination of the left hip and leg reveals the leg lengths to be equal. Dressing is clean, dry and intact. She can dorsiflex and plantarflex her foot appropriately. She does struggle doing a straight leg raise, which is not unusual. She is neurologically intact. LABORATORY DATA: Hemoglobin 12.6. Hematocrit 39.0. White cell count 12.16. Electrolytes are stable. ASSESSMENT: A 60-year-old white female postop day 1 from a left hip replacement, doing okay. Having a little bit more pain this morning, but nothing out of the ordinary. A little frustrated by her inability to lift her leg, which is normal for the first 2 weeks after the surgery. Her hip is located. She is neurologically intact. PLAN: 1. DVT prophylaxis including thigh-high TEDs, SCDs, and aspirin twice a day. 2. PT/OT. She can weightbear as tolerated in the left lower extremity. 3. Pain control. She is doing okay with current pain regimen. We will continue with this and see how things come along. We may need to adjust as time goes on. 4. Smoking history. She has got a patch in form. She stopped smoking on coming in here, but I am not sure now is the best time to stop. Certainly, we encouraged her to stop smoking, but dealing with postoperative issues and smoking cessation will be difficult to do at one time. 5. Disposition: Plan is to discharge home with some home health. She is going to likely need some therapy today and hopeful discharge tomorrow if doing okay.
[2020-09-26] MEDS: ASPIRIN 81 MG ECTAB PO SCH ×2 (10:06→20:34)
[2020-09-26] MEDS: ONDANSETRON INJ 2 MG/ML 2 ML VIAL IV PRN ×2 (11:41→18:21)
[2020-09-26] MEDS ORDERED: NICOTINE 14 MG/24 HR PATCH TD SCH (12:00)
[2020-09-26] MEDS: METOCLOPRAMIDE HCL INJ 5 MG/ML 2 ML VIAL IV PRN (20:25)
[2020-09-26] MEDS: SENNA 8.6 MG TAB PO SCH (20:34)
[2020-09-26] MEDS: LORATADINE/PSEUDOEPHEDRINE 1 TABCR PO SCH (20:34)
[2020-09-26] MEDS ORDERED: LORazepam 1 MG TAB PO SCH (21:00)
[2020-09-27] MEDS: KETOROLAC 30 MG/ML VIAL IV SCH (05:39)
[2020-09-27] MEDS: ACETAMINOPHEN 500 MG TAB PO SCH (05:39)
--- NOTE | 2020-09-27 07:14 | Orthopedic Progress Note ---
Date of Service September 27, 2020 Assessment & Plan (1) Status post total hip replacement, left: She's doing better today. We will plan to discharge her home today after PT. I will send in some zofran for nausea. Contineu teds, scds, aspirin for dvt prophylaxis. PT, WBAT and total hip precautions. Subjective .POD #2 from Left GRACIA. She's doing much better today. Pain is controlled. She had some nausea yesterday, vomited once. She feels better today. Wants to go home today. Review of Systems All systems reviewed & are unremarkable except as noted in HPI & below. Physical Exam . Alert and oriented. NAD. Left hip: dressing clean, dry, intact. Leg well aligned. Hip located. She can dorsiflex, plantarflex. NVI Results & Data Results & Data Laboratory Results . Diagnostic Findings . PG Care Time/CCT Total # of Minutes Spent Total Time Spent with Patient: Total time spent is greater than 50% in coordination of care (as documented) at patient's floor/unit and/or counseling patient: Coding Level of Care Code 87075 Post Operative Follow-Up Diagnoses Status post total hip replacement, left Z96.642
[2020-09-27] MEDS: DOCUSATE SODIUM 100 MG CAP PO SCH (07:43)
[2020-09-27] MEDS: Scopolamine CHECK PATCH PLACEMENT SCH (07:43)
[2020-09-27] MEDS: ONDANSETRON INJ 2 MG/ML 2 ML VIAL IV PRN (07:43)
[2020-09-27] MEDS: ASCORBIC ACID 500 MG TAB PO SCH (07:43)
[2020-09-27] MEDS: MULTIVITAMIN TAB PO SCH (07:44)
[2020-09-27] MEDS: NICOTINE 14 MG/24 HR PATCH TD SCH (07:44)
[2020-09-27] MEDS: ASPIRIN 81 MG ECTAB PO SCH (07:44)
[2020-09-27] MEDS: INSULIN ASPART 100 UNITS/ML 3 ML PEN SC SCH (07:57)
[2020-09-27] MEDS: INSULIN GLARGINE SOLOSTAR 100 UNITS/ML 3 ML PEN SC SCH (07:57)
[2020-09-27] MEDS: METOCLOPRAMIDE HCL INJ 5 MG/ML 2 ML VIAL IV PRN (10:29)
--- NOTE | 2020-10-01 07:47 | Discharge Summary ---
Date of Service October 01, 2020 Discharge Data Procedures Performed Operation Date: 09/25/20 07:00 Actual Procedures p Left Total Hip Arthroplasty-uncemented(Left) - Armond Serna MD Hospital Course (1) Status post total hip replacement, left: This patient is a 60 year old female admitted on 09/25/20 and underwent total hip arthroplasty. She tolerated the procedure well and there were no complications. Transferred to the PACU post op and later to the orthopedic floor for further care. She was given ancef for antibiotic prophylaxis. She was also given JORDON stockings, SCDs, and aspirin for DVT prophylaxis. Hemoglobin, hematocrit, and vital signs were monitored during her hospital stay and remained stable. Did not require any blood transfusions. There were no complications during her hospital stay. By post op day #2 the patient was tolerating a diabetic diet, pain was reasonably controlled with oral pain medicine, and she was participating in physical therapy. On post op day #2 the patient was discharged home and set up with home health care. She was given printed discharge instructions including prescriptions for extra strength tylenol, aspirin, zofran, and tramadol. Continue physical therapy, weight bearing as tolerated. Continue hip precautions. Continue JORDON stockings. Follow up approximately 2 weeks post op or sooner if there are problems or concerns. Coding Level of Care Code None Diagnoses Status post total hip replacement, left Z96.642
== END 2020-09-27 11:24 | disposition home health service (06) ==
LOC: ASU 04:55 → 3E 04:55